=== PATIENT | female | born 1990 | race Caucasian/White ===

== ENCOUNTER 2025-03-24 14:53 | Emergency (ER) | payer SELFPAY ==
[~2025-03-24] VITALS: Ht 162.6 cm; Wt 70.0 kg
[2025-03-24 15:10] VITALS: O2SAT 100
[2025-03-24] MEDS: LORAZEPAM 1MG TABLET PO ONE (16:07)
[2025-03-24 16:26] LABS: BASOPHILS % 0.5 % (0.0-2.0); EOSINOPHILS % 0.2 % (0.0-5.0); HEMATOCRIT. 37.4 % (36.0-48.0); HEMOGLOBIN. 12.5 g/dL (12.0-16.0); LYMPHOCYTES % 21.8 % (20.0-50.0); MEAN PLATELET VOLUME 8.2 fl (7.4-10.4); MONOCYTES % 5.4 % (2.0-8.0); NEUTROPHILS % 72.1 % (40.0-76.0); PLATELET 382 x1000/uL (130-400); RED BLOOD CELL COUNT 4.20 mill/uL (4.2-5.4); RED CELL DISTRIBUTION WIDTH 13.8 % (11.6-14.6)
[2025-03-24 16:39] LABS: CREATININE 0.8 mg/dL (0.6-1.0); UREA NITROGEN BLOOD 7 mg/dL (9-23)
[2025-03-24 16:40] LABS: TROPONIN I HIGH SENSITIVITY < 4 ng/L (3.0-34)
[2025-03-24 16:41] LABS: ASPARTATE AMINOTRANSFERASE 19 IU/L (<34)
[2025-03-24 16:42] LABS: BILIRUBIN TOTAL 0.8 mg/dL (0.1-1.0); PROTEIN TOTAL 8.2 g/dL (6.0-8.3)
[2025-03-24 16:46] LABS: HCG SCREEN NEGATIVE
[2025-03-24 19:36] VITALS: BP 146/90; PULSE 94; RESP 18; TEMP 37.1; O2SAT 100
== END 2025-03-24 19:38 | disposition home or self-care (01) ==
LOC: ER 14:53
DX: R06.02 Shortness of breath (principal); F43.0 Acute stress reaction; R20.2 Paresthesia of skin
CPT/HCPCS: 36415; 71045; 80053; 81025; 84484; 84703; 85025; 85379; 99284